=== PATIENT | female | born 1990 | race American Indian/Alaskan Native ===

== ENCOUNTER 2018-09-15 22:27 | Emergency (ER) | payer MEDICAID ==
[2018-09-15 23:54] VITALS: BP 113/76; PULSE 77; RESP 16; TEMP 98.6; O2SAT 98
[2018-09-16] MEDS ORDERED: Naproxen 500 MG TAB PO ONE ×2 (01:30→02:03)
--- NOTE | 2018-09-16 01:33 | ED PDOC ---
Lower Extremity Pain/Injury Time Seen by Provider: 09/16/18 01:22 Chief Complaint (Nursing): Lower Extremity Problem/Injury Chief Complaint (Provider): toe injury History Per: Patient History/Exam Limitations: no limitations Onset/Duration Of Symptoms: Hrs Current Symptoms Are (Timing): Still Present Additional Complaint(s): 27 y/o female presents for evaluation of injury to right foot 4th digit prior to arrival. PAtient states she was running barefoot and banged toe into side of dresser. Denies numbness/weakness right lower extremity, limitation of movement. Past Medical History Reviewed: Historical Data, Nursing Documentation, Vital Signs Vital Signs: Last Vital Signs Temp 98.6 F 09/15/18 23:53 Pulse 77 09/15/18 23:53 Resp 16 09/15/18 23:53 BP 113/76 09/15/18 23:53 Pulse Ox 98 09/15/18 23:53 - Medical History PMH: No Chronic Diseases - Surgical History Surgical History: No Surg Hx - Family History Family History: States: No Known Family Hx - Home Medications Home Medications: Ambulatory Orders Medication Instructions Recorded Naproxen [Naprosyn] 500 mg PO Q12 PRN #20 tablet 09/16/18 - Allergies Allergies/Adverse Reactions: Allergies Allergy/AdvReac Type Severity Reaction Status Date / Time No Known Allergies Allergy Verified 09/15/18 23:53 Review of Systems ROS Statement: Except As Marked, All Systems Reviewed And Found Negative Musculoskeletal: Positive for: Foot Pain (right foot 4th digit) Physical Exam - Reviewed Nursing Documentation Reviewed: Yes Vital Signs Reviewed: Yes - Physical Exam Appears: Positive for: Well, Non-toxic, No Acute Distress Pulses-Dorsalis Pedis (L): 2+ Pulses-Dorsalis Pedis (R): 2+ Pulses-Post. Tibialis (L): 2+ Pulses-Post. Tibialis (R): 2+ Extremity: Positive for: Normal ROM, Tenderness (right foot 4th PIP with + edema, erythema; FROM. Distal NV/motor intact) - ECG O2 Sat by Pulse Oximetry: 98 - Other Rad xray right foot 4th digit X-Ray: Viewed By [facility] X-Ray Interpretation: no acute findings - Progress ED Course And Treament: -upreg -naproxen PO -right foot 4th digit xray Patient educated on findings, surgical shoe applied to right foot Advised RICE. Rx Naproxen given Follow up podiatry for persistent symptoms Return to ED for worsening symptoms Disposition - Clinical Impression Clinical Impression: Toe injury - Patient ED Disposition Is Patient to be Admitted: No Counseled Patient/Family Regarding: Studies Performed, Diagnosis, Need For Followup, Rx Given - Disposition Referrals: Podiatry Clinic [Outside] Disposition: Routine/Home Disposition Time: 02:56 Condition: IMPROVED Prescriptions: Naproxen [Naprosyn] 500 mg PO Q12 PRN #20 tablet PRN Reason: Pain, Moderate (4-7) Instructions: Toe Injury Forms: [facility] ([place]ian)
--- NOTE | 2018-09-16 10:24 | RAD ---
Date of service: 09/16/2018 PROCEDURE: X-ray right 4th toe HISTORY: stubbed toe COMPARISON: Not available TECHNIQUE: Four views of right foot with special attention to the 4th toe. FINDINGS: No evidence of fracture of the 4th digit. Joint spaces and articular surfaces are preserved. The remaining osseous structures of the right foot are unremarkable. IMPRESSION: No evidence of right 4th toe fracture.
== END 2018-09-16 03:25 | disposition home or self-care (01) ==
LOC: H.ER 22:27 → EDSEX 22:27 → H.ER 09-16 03:25
DX: S99.921A Unspecified injury of right foot, initial encounter (principal); W22.8XXA Striking against or struck by other objects, initial encounter; Y92.89 Other specified places as the place of occurrence of the external cause